=== PATIENT | female | born 1955 | race Caucasian/White ===

== ENCOUNTER → 2017-03-17 | Outpatient (CLI) | payer OTHER ==
[2017-03-17 12:12] LABS: ALT 36 U/L (9-52); AST 24 U/L (14-36); Alkaline Phosphatase 67 U/L (38-126); Anion Gap 8 mmol/L; Blood Urea Nitrogen 19 mg/dL (7-17); Calcium 9.7 mg/dL (8.4-10.2); Carbon Dioxide 27 mmol/L (22-30); Chloride 106 mmol/L (98-107); Cholesterol 193 mg/dL (<200); Glucose 105 mg/dL (74-99); HDL Cholesterol 57 mg/dL (40-60); Non-African American GFR(MDRD) >60 (>60 ml/min/1.73 sqM); Potassium 4.3 mmol/L (3.5-5.1); Sodium 141 mmol/L (137-145); Total Bilirubin 0.8 mg/dL (0.2-1.3); Total Protein 6.8 g/dL (6.3-8.2); Triglycerides 171 mg/dL (<150)
== END | disposition home or self-care (01) ==
LOC: LABWHC1 10:50
PROVIDERS: ATTEND Internal Medicine Clinical Cardiac Electrophysiology
DX: I10 Essential (primary) hypertension (principal); I48.0 Paroxysmal atrial fibrillation; E78.5 Hyperlipidemia, unspecified
CPT/HCPCS: 36415; 80053; 80061; 84443

== ENCOUNTER → 2017-10-06 | Outpatient (CLI) | payer OTHER ==
--- NOTE | 2017-10-06 11:03 | US ---
EXAMINATION TYPE: US renal artery duplex complete DATE OF EXAM: 10/06/2017 COMPARISON: NONE CLINICAL HISTORY: I10 essential hypertension. History of hypertension for 15 years but now uncontroll ed for one month per patient MEASUREMENTS: RENAL SIZE: Rt Kidney: 10.7 x 4.9 x 4.9cm Lt Kidney: 10.4 x 5.5 x 4.5 RESISTANCE INDEX Right: 0.0 Left: 0.0 RA/AO RATIO (< 3.5 ) Right: 1.2 Left: 1.7 RA VELOCITY ( < 180 cm/s) Right: 105 Left: 151 No evidence of renal artery stenosis. Kidneys within normal limits. Visualized portion of aorta is unremarkable. Kidneys are symmetric and normal in size. No gross hydro nephrosis is seen. Scanning of bilateral renal arteries show satisfactory phasicity without suspiciou s increased velocity. IMPRESSION: No convincing ultrasound evidence for clinically significant focal renal artery stenosis.
== END | disposition home or self-care (01) ==
LOC: RADUSWWP 10-05 13:46 → RADXRMAIN 09:21
PROVIDERS: ATTEND Family Medicine
DX: I10 Essential (primary) hypertension (principal)
CPT/HCPCS: 93975

== ENCOUNTER → 2019-04-04 | Outpatient (CLI) | payer BC ==
--- NOTE | 2019-04-04 09:56 | MM ---
Reason for exam: additional evaluation requested from prior study. Last mammogram was performed 1 year and 6 months ago. History: Retro-pectoral saline implants in both breasts, 2000. Physical Findings: Nurse Summary: 0.5cm nodule in the right breast at 6 o'clock (nurse mj). MG 3D Diag Mammo Imp W/Cad AMANUEL Bilateral CC, MLO, and ID view(s) were taken. Prior study comparison: October 03, 2017, bilateral MG 3d screen mammo imp/cad. March 30, 2015, bilateral MG screening mammo implant/CAD. There are scattered fibroglandular densities. No suspicious abnormality. Right palpable corresponds to a stable mammographic mass back to 2016 that is circumscribed, likely a lymph node or cyst. Ultrasound ordered by ordering physician. Bilateral retropectoral saline implants. These results were verbally communicated with the patient and result sheet given to the patient on 04/04/19. ASSESSMENT: Benign, BI-RAD 2 RECOMMENDATION: Routine screening mammogram of both breasts in 1 year.
--- NOTE | 2019-04-04 09:58 | USB ---
Reason for exam: clinical finding. History: Retro-pectoral saline implants in both breasts, 2000. US Breast RT Right complete breast ultrasound includes all four quadrants, the retroareolar region and axilla. Finding demonstrates a 9 x 3 x 4mm oval, hypoechoic lesion at 6 o'clock BB, probable lymph node, corresponds to a mammographic finding, benign. These results were verbally communicated with the patient and result sheet given to the patient on 04/04/19. ASSESSMENT: Benign, BI-RAD 2 RECOMMENDATION: Routine screening mammogram of both breasts in 1 year.
== END | disposition home or self-care (01) ==
LOC: RADMAMWWP 08:14
PROVIDERS: ATTEND Family Medicine
DX: N64.9 Disorder of breast, unspecified (principal)
CPT/HCPCS: 77062; 77066

== ENCOUNTER 2019-07-03 06:20 | Day surgery (SDC) | payer BC ==
[2019-07-01 08:47] VITALS: BMI 29.9
[2019-07-03] MEDS ORDERED: SODIUM CHLORIDE 0.9% 500 ML 500 ML IV ONE (06:55)
[2019-07-03 07:01] VITALS: TEMP 97.6
[2019-07-03] MEDS ORDERED: fentaNYL (PF) 50 MCG/ML 2 ML AMP ONE (07:07)
[2019-07-03 07:12] LABS: African American GFR (CKD) >90 (>60 ml/min/1.73 sqM); Anion Gap 6 mmol/L; Blood Urea Nitrogen 13 mg/dL (7-17); Calcium 9.2 mg/dL (8.4-10.2); Carbon Dioxide 26 mmol/L (22-30); Chloride 106 mmol/L (98-107); Glucose 93 mg/dL (74-99); Sodium 138 mmol/L (137-145)
[2019-07-03] MEDS ORDERED: diphenhydrAMINE 50 MG/ML 1 ML VIAL ONE (07:21)
[2019-07-03] MEDS ORDERED: methylPREDNISolone SOD SUCCI 125 MG/2 ML VIAL ONE (07:21)
[2019-07-03] MEDS ORDERED: BENZOCAINE SPRAY 1 CAN MUCOUS MEM ONE ×2 (07:30→07:32)
[2019-07-03] MEDS ORDERED: MIDAZOLAM (PF) 2 MG/2 ML VIAL IVP ONE (07:34)
[2019-07-03] MEDS ORDERED: fentaNYL (PF) 50 MCG/ML 2 ML AMP IVP ONE (07:45)
[2019-07-03] MEDS ORDERED: SODIUM CHLORIDE 0.9% 1,000 ML IV SCH (08:00)
--- NOTE | 2019-07-03 08:08 | ECHOT ---
TRANSESOPHAGEAL ECHOCARDIOGRAM INDICATION: Evaluation of left atrial appendage. PROCEDURE: After explaining the procedure to the patient, its risks and complications, blood pressure, heart rate, O2 saturation was monitored. The throat was sprayed with Cetacaine. She received 3 mg intravenous Versed, 50 mcg intravenous fentanyl, the probe which was introduced into the esophagus without difficulties. Images were obtained. From there, the probe was removed. There was no immediate complication. FINDINGS: Left atrial size is mildly dilated. Left atrial appendage is normal size and systolic function normal. The aortic valve is a tricuspid valve with mild thickening tricuspid valve. Mitral valve is normal. Tricuspid valve is normal. Pulmonic valve is normal, descending thoracic aorta appears to be normal. Contrast bubble study revealed no evidence of shunting across the interatrial septum. No pericardial effusion was noted. Doppler pulse wave and color Doppler were obtained and revealed moderate mitral and aortic regurgitation with mild to moderate tricuspid regurgitation. The estimated right ventricular systolic pressure was 48 mmHg consistent with mild pulmonary hypertension. There was trace pulmonic regurgitation. CONCLUSION: 1. Normal size systolic function. 2. Normal appearance left atrial appendage. 3. Moderate mitral and tricuspid and aortic regurgitation with mild to moderate tricuspid regurgitation and trace pulmonic regurgitation. 4. Mo shunting across the interatrial septum. 5. Normal appearance of the descending thoracic aorta. MMODL / IJN: [id number] /
[2019-07-03 08:14] VITALS: RESP 16
[2019-07-03] MEDS ORDERED: METOPROLOL TARTRATE 75 MG PO SCH (09:00)
[2019-07-03] MEDS ORDERED: APIXABAN 5 MG TAB PO SCH (09:00)
[2019-07-03] MEDS ORDERED: NON FORMULARY DRUG (Omeprazole 20 MG) PO SCH (09:00)
[2019-07-03] MEDS ORDERED: ATORVASTATIN 10 MG TAB PO SCH (09:00)
[2019-07-03] MEDS ORDERED: FLECAINIDE ACETATE 100 MG PO SCH (09:00)
[2019-07-03 09:27] LABS: T4, Free (Free Thyroxine) 0.88 ng/dL (0.78-2.19)
[2019-07-03 12:54] VITALS: BP 151/83; PULSE 70
== END 2019-07-03 09:20 | disposition home or self-care (01) ==
LOC: CATHCVL 06:20
PROVIDERS: ATTEND Internal Medicine Interventional Cardiology
DX: I08.3 Combined rheumatic disorders of mitral, aortic and tricuspid valves (principal); I48.0 Paroxysmal atrial fibrillation; I10 Essential (primary) hypertension; E78.5 Hyperlipidemia, unspecified; Z79.899 Other long term (current) drug therapy; Z79.01 Long term (current) use of anticoagulants; Z91.040 Latex allergy status; Z98.890 Other specified postprocedural states; Z82.49 Family history of ischemic heart disease and other diseases of the circulatory system
CPT/HCPCS: 93312; 93320; 93325; 84439; 84481; 80048; 84443; J3010; J2250

== ENCOUNTER 2019-07-04 07:06 | Day surgery (SDC) | payer BC ==
[2019-07-04] MEDS ORDERED: SODIUM CHLORIDE 0.9% 1,000 ML IV ONE (07:42)
[2019-07-04 07:48] LABS: Basophils # (A) 0.1 k/uL (0-0.2); Basophils % (A) 1 %; Eosinophils # (A) 0.1 k/uL (0-0.7); Eosinophils % (A) 1 %; HCT 35.5 % (34.0-46.0); HGB 11.9 gm/dL (11.4-16.0); Lymphocytes # (A) 3.2 k/uL (1.0-4.8); Lymphocytes % (A) 48 %; MCH 31.4 pg (25.0-35.0); MCHC 33.6 g/dL (31.0-37.0); MCV 93.4 fL (80.0-100.0); Mean Platelet Volume 8.8; Monocytes # (A) 0.3 k/uL (0-1.0); Monocytes % (A) 4 %; Neutrophils % (A) 44 %; Platelet Count 218 k/uL (150-450); RDW 15.5 % (11.5-15.5); WBC 6.8 k/uL (3.8-10.6)
[2019-07-04] MEDS ORDERED: fentaNYL (PF) 50 MCG/ML 2 ML AMP ONE (08:07)
[2019-07-04] MEDS ORDERED: PROTAMINE SULFATE 10 MG/ML 5 ML VIAL IV ONE (08:07)
[2019-07-04] MEDS ORDERED: HEPARIN SODIUM,PORCINE 10,000 UNIT/ML 1 ML VIAL ONE (08:07)
[2019-07-04] MEDS ORDERED: ISOPROTERENOL 250 MCG/1.25 ML SYR IV ONE (08:07)
[2019-07-04] MEDS ORDERED: MIDAZOLAM 2 MG/2 ML VIAL ONE (08:07)
[2019-07-04] MEDS ORDERED: PROPOFOL 10 MG/ML 20 ML VIAL IV ONE (08:07)
[2019-07-04] MEDS ORDERED: PHENYLEPHRINE-0.9% NACL SYG 1 MG/10 ML SYRINGE ONE (08:07)
[2019-07-04] MEDS ORDERED: SUCCINYLCHOLINE CHLORIDE VIAL 200 MG/10 ML VIAL IV ONE (08:07)
[2019-07-04] MEDS ORDERED: LIDOCAINE 1% INJ 10MG/ML (20 ML MDV) ONE (08:32)
[2019-07-04] MEDS ORDERED: LIDOCAINE 1% INJ 10MG/ML (20 ML MDV) SQ ONE (08:55)
[2019-07-04] MEDS ORDERED: HEPARIN SOD,PORK IN 0.45% NACL 25,000 UNIT in 0.45% NACL 1 250ML.BAG IV ONE ×2 (09:15)
[2019-07-04] MEDS ORDERED: HEPARIN SODIUM (1,000 UNIT/ML) 1,000 UNIT in SODIUM CHLORIDE 0.9% 1,000 ML IRRIGATION ONE (09:16)
[2019-07-04] MEDS ORDERED: ACETAMINOPHEN IV (For NPO) 1,000 MG in EMPTY BAG 1 BAG IVPB ONE (13:28)
[2019-07-04] MEDS ORDERED: ACETAMINOPHEN TAB 325 MG TAB PO PRN (13:28)
[2019-07-04] MEDS ORDERED: IOPAMIDOL-370 100ML BTL INJ ONE ×2 (13:29)
--- NOTE | 2019-07-04 13:46 | P.PCN ---
Preoperative Diagnosis: Diagnosis Atrial fibrillation, symptomatic, refractory to therapy, paroxysmal Result No left atrial appendage mass seen on intracardiac echo Successful pulmonary vein isolation of all veins using cryo-ablation Complete entrance block in all 4 veins confirmed No evidence for phrenic nerve injury Esophageal deflection YES Electrical cardioversion with a synchronized shock across the chest YES Procedure details Patient was brought to the EP lab in a fasting state. Written informed consent was obtained prior to the procedure. Procedure performed under general anesthesia After initial muscle relaxant use, muscle relaxants were not given thereafter in order to assess phrenic nerve during procedure. Patient prepped and draped as per protocol Full cryo-set up with standard preparation of the cryoablation tools done. Femoral Venous access obtained on the right and left groins Venous and arterial Sheaths placed. Diagnostic catheters for the high right atrium, phrenic nerve stimulation and pacing, His bundle, RV and coronary sinus placed Intracardiac echo catheter placed. Long sheath placed in the right atrium Left and right transseptal catheterization performed under intracardiac echo guidance. Intravenous heparin with aCT above 300 Later, catheter positioning and balloon positioning in the left atrium, under i ntracardiac echo guidance Diagnostic EP study with Drug infusion Coronary sinus pacing and recording Baseline measurements Sinus cycle length 884 ms, AZ interval 210 ms QRS 108 ms and QT 431 ms AH 101 ms and HV interval 50 ms Atrial pacing performed from the high right atrium and the coronary sinus Transseptal catheterization performed RA pressure 21/12/18 LA pressure 43/10/25 Transseptal catheterization performed with standard sheath. The cryoablation sheath was then placed with an over the wire exchange without any acute complications. All 4 pulmonary veins were isolated in the following sequence: Left superior followed by left inferior followed by right superior followed by right inferior The cryo-ablation balloon was placed at the os of each vein 1.5 mL of IV dye was injected to confirm an occluded vein Goal during cryoablation was to achieve complete occlusion of the pulmonary vein, achieve -30 degrees C at 30 seconds and achieve -40 degrees C at 60 seconds and a time to effect of less than 60-90 seconds, . If not the balloon was repositioned to obtain this result After completion of Cryoblation with durations from 180-240 seconds, entrance block was confirmed with the Attain circular catheter in a roving fashion around the antrum of the pulmonary veins Phrenic nerve pacing was performed from the SVC, right innominate vein area and diaphragm voltage was monitored. Diaphragmatic contractions were also monitored manually for strength of contraction. Parameter goals for each cryo freeze Complete occlusion of the appropriate vein -30 degrees C by 30 seconds -40 degrees C by 60 seconds Minimum between minus 40-55 degrees C Thaw time greater than 10 seconds Balloon visualized by intracardiac echo The esophagus was intubated. Esophageal Temperature monitoring with a CIRCA catheter formed. Esophageal deflection for hypothermia of the esophagus below 30 degrees C Left superior pulmonary vein Complete isolation, entrance block Left inferior pulmonary vein Complete isolation, entrance block Right superior pulmonary vein, during phrenic nerve pacing Complete isolation, entrance block Right inferior pulmonary vein, during phrenic nerve pacing Complete isolation, entrance block At the end of the procedure the Achieve catheter was once again used to check for entrance block Phrenic nerve stimulation was performed to confirm diaphragmatic stimulation the end of the procedure Cine fluoroscopy was performed at the very end of the procedure to confirm movement of both diaphragms with inspiration and expiration After successful cryoablation N EP study is performed Isuprel was infused Atrial fibrillation, somewhat organized was induced Following that 3-D electro anatomic mapping was performed in the left atrium intracardiac echo 3-D mapping was performed Voltage map of the left atrium and the pulmonary veins was performed Linear ablation in the left atrial roof was performed A complete line of block was made from the left superior to the right superior vein and somewhat anteriorly on the roof. This line was interrogated with voltage mapping at the end of the procedure Anterior septal ablation linear ablation was performed. A linear ablation from the roof line down to the inferior pulmonary vein and also ablation in a semicircular fashion more anterior to this line skirting close to the transseptal. We followed fractionated electrograms during sinus rhythm. Following that pacing within this segment did not result in any capture of the rest of the atrium, exit block Linear ablation in the groove between the appendage and the left-sided veins Linear ablation in the nikole posteriorly between the right superior and right inferior veins At the end of the procedure the patient was extubated Heparin was reversed Venous sheaths were removed and hemostasis assured Procedures performed (PVI - CRYO Ablation) Diagnostic EP study with attempted arrhythmia induction CS pacing and recording Left and right transseptal catheterization 3D mapping) Intracardiac echocardiography Pulmonary vein isolation with transseptal and comprehensive EPS, [id number] Left atrial roof line, +[id number] Linear ablation, left atrium, +[id number] Electrical cardioversion with a synchronized shock across the chest [id number] Drug Infusion +[id number]
[2019-07-04] MEDS: SODIUM CHLORIDE 0.9% 1,000 ML IV SCH (13:56)
[2019-07-04 15:18] VITALS: BMI 31.5
[2019-07-04] MEDS: HYDROcodone/APAP 5-325MG 1 EACH TAB PO PRN (16:44)
[2019-07-04] MEDS: APIXABAN 5 MG TAB PO SCH (19:40)
[2019-07-04] MEDS ORDERED: FLECAINIDE 50 MG TAB PO SCH (21:00)
[2019-07-04] MEDS ORDERED: ZOLPIDEM 5 MG TAB PO PRN (23:54)
[2019-07-05] MEDS: HYDROcodone/APAP 5-325MG 1 EACH TAB PO PRN (03:16)
[2019-07-05] MEDS: SODIUM CHLORIDE 0.9% 1,000 ML IV SCH (06:40)
[2019-07-05] MEDS ORDERED: PANTOPRAZOLE 40 MG TABLET PO SCH (07:30)
[2019-07-05] MEDS ORDERED: ATORVASTATIN 10 MG TAB PO SCH (09:00)
[2019-07-05] MEDS ORDERED: LISINOPRIL 10 MG TAB PO SCH ×2 (09:00)
[2019-07-05] MEDS ORDERED: FLECAINIDE 50 MG TAB PO SCH ×2 (09:00)
[2019-07-05] MEDS ORDERED: METOPROLOL TARTRATE 75 MG PO SCH (09:00)
[2019-07-05] MEDS ORDERED: METOPROLOL SUCCINATE (ER) 50 MG TAB.ER.24H PO SCH (09:00)
[2019-07-05] MEDS: APIXABAN 5 MG TAB PO SCH (09:06)
--- NOTE | 2019-07-05 09:20 | P.DS ---
Providers Attending physician: Jean Marshall Primary care physician: [facility] Course: Patient is resting comfortably in bed. She did get up to go to the bathroom She has no chest discomfort no dizziness lightheadedness palpitations. Groins have healed well no pain swelling Groins are examined no hematoma no swelling minimal tenderness Breath sounds are clear no adventitious sounds no rhonchi no crackles Normal heart sounds normal S1 normal S2 regular Abdomen soft nontender Extremities warm no edema Impression Paroxysmal atrial fibrillation, drug refractory to both flecainide and disopyramide Hypertension, usually takes lisinopril Regular alcohol use Being evaluated for sleep apnea Increased BMI Dyslipidemia, on statins Status post cryoablation of pulmonary veins. A pulmonary veins had reconnected. She had had pulmonary vein isolation performed in 2008, previously Inducible atrial fibrillation after successful isolation of all 4 pulmonary veins on Isuprel Thereafter Status post linear ablation along the anterior LA septum along areas of fractionation Linear ablation along the roof Linear ablation along left atrial groove between the left-sided pulmonary veins and the left atrial appendage Linear RF lines were interrogated with voltage mapping postprocedure Plan Continue Lipitor 10 mg by mouth daily Continue ELIQUIS 5 mg twice daily Reduce flecainide to 50 mg twice daily Continue Prilosec Change metoprolol succinate to 50 mg by mouth daily Resume lisinopril 10 mg by mouth daily Follow-up with a week, Follow-up with Dr. Marshall/Zonia Alas/Svetlana Rodriguez Discharge home by 5 PM today after suture removal the groins ambulating in the hallways Long-term plan Reduce the dose of flecainide Restart and maximize carmelo inhibitors Continue statins Sleep apnea assessment Complete abstinence from alcohol Gradual weight reduction Plan - Discharge Summary Discharge Rx Participant: No New Discharge Prescriptions: New Metoprolol Succinate [Toprol XL] 50 mg PO DAILY #90 tab Flecainide [Tambocor] 50 mg PO Q12HR #180 tablet Lisinopril [Zestril] 10 mg PO DAILY #90 tab Discontinued Flecainide Acetate [Tambocor] 100 mg PO Q12HR Metoprolol Tartrate [Lopressor] 75 mg PO DAILY No Action Atorvastatin [Lipitor] 10 mg PO DAILY Apixaban [Eliquis] 5 mg PO BID Omeprazole [PriLOSEC] 20 mg PO DAILY Discharge Medication List Atorvastatin [Lipitor] 10 mg PO DAILY 09/25/17 [History] Apixaban [Eliquis] 5 mg PO BID 07/01/19 [History] Omeprazole [PriLOSEC] 20 mg PO DAILY 07/01/19 [History] Metoprolol Succinate [Toprol XL] 50 mg PO DAILY #90 tab 07/04/19 [Rx] Flecainide [Tambocor] 50 mg PO Q12HR #180 tablet 07/05/19 [Rx] Lisinopril [Zestril] 10 mg PO DAILY #90 tab 07/05/19 [Rx] Follow up Appointment(s)/Referral(s): Jean Marshall MD [STAFF PHYSICIAN] - 1 Week (follow up with Dr. Marshall/Zonia Alas/Svetlana Rodriguez in one to 2 weeks) Activity/Diet/Wound Care/Special Instructions: Post EP study - Ablation instructions 1. Keep access sites dry for 2 days. 2. No heavy lifting or straining for 2 days. 3. Avoid bending the hips repeatedly for 2 days. 4. You may go up and down stairs slowly Call if the following is noted 1. Bleeding, increasing swelling or pain at the access sites. 2. Increasing chest discomfort, especially upon taking a deep breath. 3. Increasing shortness of breath, at rest or with exertion. 4. Undue cough / phlegm 5. Difficulty or pain while swallowing. 6. Pain or change in color in the extremities. 7. Fever, chills, rigors. 8. Increasing headache or neurologic symptoms. 9. Dizziness, fainting, palpitations Tinea all cardiac medications including flecainide 100 mg twice daily and Eliquis
[2019-07-05 12:28] VITALS: BP 157/84; PULSE 78; RESP 18; TEMP 98
== END 2019-07-05 15:00 | disposition home or self-care (01) ==
LOC: CATHEP 07:06 → 1SOBS 13:52 → CATHEP 07-05 15:00
PROVIDERS: ATTEND Internal Medicine Clinical Cardiac Electrophysiology
DX: I48.0 Paroxysmal atrial fibrillation (principal); I10 Essential (primary) hypertension; Z72.89 Other problems related to lifestyle; E78.5 Hyperlipidemia, unspecified; R94.39 Abnormal result of other cardiovascular function study; I47.1 Supraventricular tachycardia; K21.9 Gastro-esophageal reflux disease without esophagitis; Z79.01 Long term (current) use of anticoagulants; Z79.899 Other long term (current) drug therapy; Z91.040 Latex allergy status; Z90.710 Acquired absence of both cervix and uterus; Z82.49 Family history of ischemic heart disease and other diseases of the circulatory system
CPT/HCPCS: 93656; 93623; 93662; 93613; 93657; 85347; 85025; C1769 ×5; C1894; C1730 ×2; C1759; C1893; C1733; C1732; J2250; J0330; J2720; J1644 ×3; J2001; J3010; J2370; J2704; Q9967

== ENCOUNTER → 2021-09-01 | Outpatient (CLI) | payer MEDICARE, OTHER ==
--- NOTE | 2021-09-02 10:07 | ECHOF ---
Referral Reason:I48.0 Paroxysmal atrial fibrillation MEASUREMENTS -------- HEIGHT: 162.6 cm WEIGHT: 79.4 kg BP: RVIDd: 3.2 cm (< 3.3) IVSd: 0.9 cm (0.6 - 1.1) LVIDd: 4.5 cm (3.9 - 5.3) LVPWd: 1.2 cm (0.6 - 1.1) IVSs: 1.3 cm LVIDs: 3.1 cm LVPWs: 1.2 cm LA Diam: 3.5 cm (2.7 - 3.8) LAESV Index (A-L): 29.80 ml/m Ao Diam: 2.8 cm (2.0 - 3.7) AV Cusp: 1.8 cm (1.5 - 2.6) LA Diam: 3.4 cm (2.7 - 3.8) MV EXCURSION: 13.666 mm (> 18.000) MV EF SLOPE: 49 mm/s (70 - 150) EPSS: 0.3 cm MV E Salvador: 0.89 m/s MV DecT: 170 ms MV A Salvador: 0.88 m/s MV E/A Ratio: 1.01 AR PHT: 588 ms RAP: 5.00 mmHg RVSP: 32.15 mmHg FINDINGS -------- Sinus rhythm. This was a technically good study. LV size, wall thickness and systolic function are normal, with an EF greater than 55%. The left aniceto tricular size is normal. The right ventricle is normal in size. LA is midly dilated 29-33ml/m2. The right atrial size is normal. There is mild aortic valve sclerosis. There is mild aortic regurgitation. Mild mitral annular calcification present. Mild mitral regurgitation is present. Mild tricuspid regurgitation present. Right ventricular systolic pressure is normal at < 35 mmHg. There is no pulmonic regurgitation present. There is no pericardial effusion. CONCLUSIONS -------- 1. LV size, wall thickness and systolic function are normal, with an EF greater than 55%. 2. The left ventricular size is normal. 3. The right ventricle is normal in size. 4. LA is midly dilated 29-33ml/m2. 5. The right atrial size is normal. 6. There is mild aortic valve sclerosis. 7. There is mild aortic regurgitation. 8. Mild mitral annular calcification present. 9. Mild mitral regurgitation is present. 10. Mild tricuspid regurgitation present. 11. There is no pericardial effusion. LABEL DRIER: Ashia Clement RDCS
== END | disposition home or self-care (01) ==
LOC: RADECHMAIN 16:21
PROVIDERS: ATTEND Family Medicine
DX: I08.3 Combined rheumatic disorders of mitral, aortic and tricuspid valves (principal)
CPT/HCPCS: 93306

== ENCOUNTER 2021-09-30 10:11 | Day surgery (SDC) | payer MEDICARE, OTHER ==
[2021-09-29 11:58] VITALS: BMI 29.1
[~2021-09-30 10:11] MED LIST: LACTATED RINGERS 1,000 ML IV SCH
[2021-09-30 10:30] VITALS: TEMP 97.5
[2021-09-30] MEDS ORDERED: LACTATED RINGERS 1,000 ML IV ONE (10:30)
[2021-09-30] MEDS ORDERED: PROPOFOL 10 MG/ML 20 ML VIAL IV ONE (11:19)
--- NOTE | 2021-09-30 12:06 | P.PCN ---
Date of Procedure: 09/30/21 Procedure(s) Performed: BRIEF HISTORY: Patient is a 66-year-old pleasant white female scheduled for an elective colonoscopy as a part of screening for colorectal neoplasia. PROCEDURE PERFORMED: Colonoscopy with biopsy. PREOPERATIVE DIAGNOSIS: Screening for colon cancer. IV sedation per Anesthesia. PROCEDURE: After informed consent was obtained, the patient, was brought into the endoscopy unit. IV sedation was administered by Anesthesia under continuous monitoring. Digital rectal examination was normal. Initially the Olympus CF-160 flexible video colonoscope was then inserted in the rectum, gradually advanced into the cecum without any difficulty. Careful examination was performed as the scope was gradually being withdrawn. Ileocecal valve and the appendiceal orifice were visualized and appeared normal. Prep was excellent. Mucosa of the cecum had 3 mm sessile polyp removed by cold biopsy. In the ascending colon there was a 2 mm and 3 mm polyp that was removed by cold biopsy. Rest of the, ascending colon, appeared normal. In the transverse colon there was another 2 mm polyp that was removed by cold biopsy. Rest of the transverse colon, descending colon, sigmoid colon, and rectum appeared normal. Scattered sigmoid diverticulosis seen. Retroflexion was performed in the rectum and no lesions were seen. The patient tolerated the procedure well. IMPRESSION: 3 mm cecal polyp status post cold biopsy 3 mm and 5 mm ascending colon polyp status post cold biopsy 2 mm transverse colon polyp status post cold biopsy Scattered sigmoid diverticulosis RECOMMENDATIONS: Findings of this examination were discussed with the patient as well as a family. She was advised to follow with the biopsy results and have a repeat surveillance colonoscopy in 5 years from now.
[2021-09-30 12:42] VITALS: BP 128/74; PULSE 88; RESP 16
== END 2021-09-30 13:07 | disposition home or self-care (01) ==
LOC: ORWHC2ENDO 10:11
PROVIDERS: ATTEND Internal Medicine Gastroenterology
DX: Z12.11 Encounter for screening for malignant neoplasm of colon (principal); D12.2 Benign neoplasm of ascending colon; D12.0 Benign neoplasm of cecum; K57.30 Diverticulosis of large intestine without perforation or abscess without bleeding; I10 Essential (primary) hypertension; E78.5 Hyperlipidemia, unspecified; I48.91 Unspecified atrial fibrillation; K21.9 Gastro-esophageal reflux disease without esophagitis; Z98.890 Other specified postprocedural states; Z90.710 Acquired absence of both cervix and uterus; Z79.01 Long term (current) use of anticoagulants; Z79.899 Other long term (current) drug therapy; Z91.040 Latex allergy status
CPT/HCPCS: 88305; 45380; J2704

== ENCOUNTER → 2023-03-14 | Outpatient (CLI) | payer MEDICARE ==
[2023-03-14 09:58] LABS: Basophils % (A) 0 %; Eosinophils # (A) 0.1 k/uL (0-0.7); Eosinophils % (A) 1 %; HCT 36.4 % (34.0-46.0); HGB 11.5 gm/dL (11.4-16.0); Lymphocytes # (A) 2.6 k/uL (1.0-4.8); Lymphocytes % (A) 32 %; MCH 31.4 pg (25.0-35.0); MCHC 31.7 g/dL (31.0-37.0); MCV 99.1 fL (80.0-100.0); Monocytes # (A) 0.5 k/uL (0-1.0); Monocytes % (A) 6 %; Neutrophils # (A) 4.8 k/uL (1.3-7.7); Neutrophils % (A) 59 %; Platelet Count 227 k/uL (150-450); RBC 3.67 m/uL (3.80-5.40); RDW 12.9 % (11.5-15.5); WBC 8.1 k/uL (3.8-10.6)
[2023-03-14 10:08] LABS: ALT 41 U/L (4-34); AST 76 U/L (14-36); African American GFR (CKD) >90 (>60 ml/min/1.73 sqM); Albumin 3.8 g/dL (3.5-5.0); Albumin/Globulin Ratio 1.3; Alkaline Phosphatase 155 U/L (38-126); Anion Gap 7 mmol/L; Blood Urea Nitrogen 9 mg/dL (7-17); Calcium 8.8 mg/dL (8.4-10.2); Carbon Dioxide 29 mmol/L (22-30); Chloride 96 mmol/L (98-107); Glucose 100 mg/dL (74-99); Non-African American GFR(CKD) >90 (>60 ml/min/1.73 sqM); Potassium 4.3 mmol/L (3.5-5.1); Sodium 132 mmol/L (137-145); Total Bilirubin 1.2 mg/dL (0.2-1.3); Total Protein 6.8 g/dL (6.3-8.2)
--- NOTE | 2023-03-14 11:23 | CT ---
EXAMINATION TYPE: CT abdomen pelvis w con DATE OF EXAM: 03/14/2023 COMPARISON: None HISTORY: Lower abdominal pain CT DLP: 1034.8 mGycm CONTRAST: CT scan of the abdomen and pelvis is performed with Oral Contrast and with IV Contrast, patient injec nimesh with 100 mL of Isovue 300. FINDINGS: LUNG BASES-: No visible nodule. No infiltrate. Small paraesophageal hiatal hernia with prior surgica l intervention felt to reflect gastric sleeve. Correlate clinically. LIVER/GB: No calcified gallstones. No space occupying hepatic lesion. Biliary tree is of normal ca liber. There is mild hepatic steatosis. PANCREAS: No inflammation. No distinct mass. SPLEEN: No splenic enlargement. No lesion seen. ADRENALS: No nodule. No thickening. KIDNEYS/BLADDER: No hydronephrosis. No nephrolithiasis. No distinct renal mass. Urinary bladder g rossly unremarkable. BOWEL: Normal appendix. Normal bowel caliber. Mild inflammatory change compatible with acute diverti culitis involving the distal descending colon. No evidence of perforation or abscess. Scattered diver ticula noted throughout the sigmoid colon as well as the descending colon. GENITAL ORGANS: No gross abnormality. LYMPH NODES: No greater than 1cm abdominal or pelvic lymph nodes are appreciated. AORTA: No significant abnormality. OSSEOUS STRUCTURES: No significant abnormality is seen. OTHER: No significant additional abnormality is seen. IMPRESSION: 1. Mild inflammatory change compatible with acute diverticulitis involving the distal descending colo n. No evidence of perforation or abscess.
[2023-03-14 16:06] LABS: Chol/HDL Ratio 2.41 Ratio; LDL Cholesterol,Calculated 71.7 mg/dL
== END | disposition home or self-care (01) ==
LOC: RADCTMAIN 09:16
PROVIDERS: ATTEND Family Medicine
DX: K52.89 Other specified noninfective gastroenteritis and colitis (principal); R10.30 Lower abdominal pain, unspecified
CPT/HCPCS: 80061; 80053; 84443; 85025; 82306; 83036; 74177; 36415; Q9967

== ENCOUNTER → 2023-03-14 | Outpatient (CLI) | payer MEDICARE, OTHER ==
--- NOTE | 2023-03-15 07:45 | MM ---
Reason for Exam: Screening (asymptomatic). Last mammogram was performed 4 year(s) and 0 month(s) ago. Patient History: Menarche at age 13. First Full-Term at age 20. Hysterectomy at age 46. 2000, Bilateral Implants. Risk Values: [place] 5 year model risk: 1.2%. NCI Lifetime model risk: 4.4%. Prior Study Comparison: 03/30/2015 Bilateral Screening Mammogram, [facility]. 10/03/2017 Bilateral Screening Mammogram, [facility]. 04/04/2019 Bilateral Diagnostic Mammogram, [facility]. Tissue Density: There are scattered fibroglandular densities. Findings: Analyzed By CAD. There is no suspicious group of microcalcifications or new suspicious mass in either breast. Chronic nodularity within both breasts. There is no suspicious group of microcalcifications or new suspicious mass in either breast. Chronic nodularity within both breasts. Bilateral retropectoral saline breast implants redemonstrated. Overall Assessment: Benign, BI-RAD 2 Management: Screening Mammogram of both breasts in 1 year. A clinical breast exam by your physician is recommended on an annual basis and results should be correlated with mammographic findings. Electronically signed and approved by: Richar Rodrigues D.O.
== END | disposition home or self-care (01) ==
LOC: RADMAMWWP 10:59
PROVIDERS: ATTEND Family Medicine
DX: Z12.31 Encounter for screening mammogram for malignant neoplasm of breast (principal)
CPT/HCPCS: 77063; 77067

== ENCOUNTER → 2023-06-05 | Outpatient (CLI) | payer MEDICARE ==
[2023-06-05 09:47] LABS: African American GFR (CKD) >90 (>60 ml/min/1.73 sqM); Blood Urea Nitrogen 10 mg/dL (7-17); Non-African American GFR(CKD) >90 (>60 ml/min/1.73 sqM)
--- NOTE | 2023-06-05 11:19 | CT ---
EXAMINATION TYPE: CT abdomen pelvis w con DATE OF EXAM: 06/05/2023 COMPARISON: 03/14/2023 HISTORY: Increased lower abdominal pain, history of diverticulosis CT DLP: 1074.6 mGycm CONTRAST: CT scan of the abdomen and pelvis is performed with Oral Contrast and with IV Contrast, patient injec nimesh with 100 mL of Isovue 300. FINDINGS: LUNG BASES-: No visible nodule. No infiltrate. LIVER/GB: No calcified gallstones. No space occupying hepatic lesion. Biliary tree is of normal ca liber. Mild hepatic steatosis noted. PANCREAS: No inflammation. No distinct mass. SPLEEN: No splenic enlargement. No lesion seen. ADRENALS: No nodule. No thickening. KIDNEYS/BLADDER: No hydronephrosis. No nephrolithiasis. No distinct renal mass. Urinary bladder g rossly unremarkable. BOWEL: Normal appendix. Gastric sleeve formation with small hiatal hernia. Moderate scattered colonic diverticulosis. Previously noted diverticulitis has resolved. No acute inflammatory process seen at this time. GENITAL ORGANS: No gross abnormality. LYMPH NODES: No greater than 1cm abdominal or pelvic lymph nodes are appreciated. AORTA: No significant abnormality. OSSEOUS STRUCTURES: No significant abnormality is seen. OTHER: No significant additional abnormality is seen. IMPRESSION: 1. Moderate scattered colonic diverticulosis. Previously noted diverticulitis has resolved. No acute inflammatory process seen at this time.
== END | disposition home or self-care (01) ==
LOC: RADCTMAIN 09:06
PROVIDERS: ATTEND Internal Medicine Gastroenterology
DX: K57.30 Diverticulosis of large intestine without perforation or abscess without bleeding (principal); R74.8 Abnormal levels of other serum enzymes; Z87.19 Personal history of other diseases of the digestive system
CPT/HCPCS: 82565; 84520; 74177; 36415; Q9967

== ENCOUNTER → 2023-06-08 | Outpatient (CLI) | payer MEDICARE ==
--- NOTE | 2023-06-08 10:21 | US ---
EXAMINATION TYPE: US abdomen limited DATE OF EXAM: 06/08/2023 COMPARISON: CT 06/05/23 CLINICAL INDICATION: Female, 68 years old with history of R74.8 ABNORMAL LEVELS OF OTHER SERUM ENZYME S; TECHNIQUE: Multiple sonographic images of the right upper quadrant are obtained. FINDINGS: EXAM MEASUREMENTS: Liver Length: 14.3 cm Gallbladder Wall: 0.29 cm CBD: 0.31 cm Right Kidney: 9.8 x 5.2 x 4.5 cm JAVASCRIPT DEVELOPER NOTES: Pancreas: Tail obscured by overlying bowel gas Liver: Increased echogenicity Gallbladder: Appears wnl Evidence for sonographic Garcia's sign: no CBD: wnl Right Kidney: Appears wnl The visualized portions of the pancreas are unremarkable. The tail is obscured by overlying bowel gas . Diffuse increased echogenicity to the liver without focal lesion identified. Gallbladder is unremar kable without evidence of cholelithiasis, wall thickening, pericholecystic fluid. Per manager service desk, ne gative sonographic Garcia sign. Common bile duct is within normal limits. Right kidney is unremarkabl e without evidence of solid mass, hydronephrosis, nephrolithiasis. IMPRESSION: 1. No acute processes. 2. Hepatic steatosis.
[2023-06-08 13:52] LABS: Hepatitis B Surface Antigen Nonreactive; Hepatitis C IgG Antibody Nonreactive
[2023-06-08 14:11] LABS: Ceruloplasmin 26.9 mg/dL (20.0-60.0)
[2023-06-08 16:30] LABS: % Iron Saturation 26.14 (12.00-45.00); ALT 40 U/L (8-44); AST 40 U/L (13-35); Albumin 4.2 d/dL (3.8-4.9); Albumin/Globulin Ratio 1.91 Ratio (1.60-3.17); Alkaline Phosphatase 103 U/L (41-126); Blood Urea Nitrogen 7.5 mg/dL (9.0-27.0); Calcium 9.5 mg/dL (8.7-10.3); Chloride 103 mmol/L (96-109); Globulin 2.2 d/dL (1.6-3.3); Glucose 99 mg/dL (70-110); Iron 86 UG/DL (50-170); Potassium 4.6 mmol/L (3.5-5.5); Sodium 139 mmol/L (135-145); Total Bilirubin 0.3 mg/dL (0.3-1.2); Total Iron Binding Capacity 329 UG/DL (228-460); Total Protein 6.4 d/dL (6.2-8.2)
[2023-06-08 17:26] LABS: Albumin 4.1 d/dL (3.8-4.9); Protein, Total 6.5 d/dL (6.2-8.2)
== END | disposition home or self-care (01) ==
LOC: RADUSWWP 09:30
PROVIDERS: ATTEND Internal Medicine Gastroenterology
DX: K76.0 Fatty (change of) liver, not elsewhere classified (principal); R74.8 Abnormal levels of other serum enzymes
CPT/HCPCS: 76705; 80053; 82103; 82390; 82728; 83516; 83540; 83550; 84165; 86038; 86803; 87340

== ENCOUNTER → 2024-01-17 | Outpatient (CLI) | payer MEDICARE ==
--- NOTE | 2024-01-18 12:21 | US ---
EXAMINATION TYPE: US arterial LE single level DATE OF EXAM: 01/17/2024 3:21 PM CLINICAL INDICATION: Female, 68 years old with history of G64 DISORDER PERIPHERAL VASC SYSTEM; Patien t states foot neuropathy. History of: Smoker: No Hypertension: Takes medication Diabetic: No Hyperlipidemia: Takes medication TIA/CVA: No Previous Vascular Surgery: No CAD: No AL: No Vascular Ulcers: No Claudication: No Gangrene: No Doppler Waveforms: Right: Multiphasic Left: Multiphasic Right Brachial Pressure: 113 Left Brachial Pressure: 112 Ankle-Brachial Indices: Right: 1.3 Left: 1.3 (Vessel hardening > 1.4; Normal 0.9 - 1.4, Moderate 0.7 - 0.9, Severe 0.5-0.7) Normal IMPRESSION: Normal bilateral SUZIE.
== END | disposition home or self-care (01) ==
LOC: RADUSWWP 14:59
PROVIDERS: ATTEND Family Medicine
DX: G64 Other disorders of peripheral nervous system (principal)
CPT/HCPCS: 93922

== ENCOUNTER → 2024-12-31 | Outpatient (CLI) | payer MEDICARE ==
--- NOTE | 2024-12-31 13:12 | US ---
EXAMINATION TYPE: US venous doppler duplex LE BI; LOWER EXTREMITY VENOUS INSUFFICIENCY DATE OF EXAM: 12/31/2024 COMPARISON: NONE CLINICAL INDICATION: Female, 69 years old with history of G25.81 RESTLESS LEGS; TECHNIQUE: Grayscale color Doppler and spectral Doppler imaging of the lower extremity veins. FINDINGS: SIDE PERFORMED: Bilateral 1) Color flow is present and patency is documented in the following vessels. No DVT or SVT is noted . Common Femoral Vein Deep Femoral Vein Femoral Vein Popliteal Vein Proximal Calf Veins Greater Saph Vein 2) There is venous reflux noted at the following venous levels: None 3) Incompetent perforators are noted at these levels: None IMPRESSION: No evidence for venous insufficiency/reflux. No ultrasound evidence for acute DVT bilaterally. [facility], , 12/31/2024 1:10 PM
--- NOTE | 2024-12-31 13:13 | US ---
EXAMINATION TYPE: US carotid duplex BILAT DATE OF EXAM: 12/31/2024 COMPARISON: NONE CLINICAL INDICATION: Female, 69 years old with history of R20.2 PARESTHESIA OF SKIN; TECHNIQUE: Grayscale, color Doppler and spectral Doppler evaluation of the bilateral carotid systems and vertebral arteries. Indirect Doppler criteria was utilized. FINDINGS: EXAM MEASUREMENTS: RIGHT: Peak Systolic Velocity (PSV) cm/sec ----- Right CCA: 87.5 ----- Right ICA: 87.1 ----- Right ECA: 100.5 ICA/CCA ratio: 1.0 RIGHT: End Diastole cm/sec ----- Right CCA: 26.2 ----- Right ICA: 34.8 ----- Right ECA: 12.6 LEFT: Peak Systolic Velocity (PSV) cm/sec ----- Left CCA: 80.9 ----- Left ICA: 80.9 ----- Left ECA: 79.2 ICA/CCA ratio: 1.0 LEFT: End Diastole cm/sec ----- Left CCA: 19.3 ----- Left ICA: 32.5 ----- Left ECA: 10.8 VERTEBRALS (direction of flow): Right Vertebral: Antegrade Left Vertebral: Antegrade Rhythm: Normal [id number] peripheral calcified plaque left greater than right carotid bulb level is seen. IMPRESSION: Right: Less than 50% stenosis of the carotid bifurcation. Left: Less than 50% stenosis of the carotid bifurcation. Criteria for Assigning % of Stenosis / Diameter reduction (Estimation based on the indirect measurements of the internal carotid artery velocities (ICA PSV). 1. Normal (no stenosis)=ICA PSV < 125 cm/s: ratio < 2.0: ICA EDV<40 cm/s. 2. Less than 50% stenosis=ICA PSV < 125 cm/s: ratio < 2.0: ICA EDV<40 cm/s. 3. 50 to 69% stenosis=ICA PSV of 125 to 230 cm/s: ration 2.0 ? 4.0: ICA EDV 40-100 cm/s. 4. Greater than 70% stenosis to near occlusion= ICA PSV > 230 cm/s: ratio > 4.0: ICA EDV > 100 cm/s. 5. Near occlusion= ICA PSV velocities may be low or undetectable: variable ratio and ICA EDV. 6. Total occlusion=unable to detect flow. [facility], , 12/31/2024 1:11 PM
--- NOTE | 2024-12-31 14:22 | MR ---
EXAMINATION TYPE: MR cervical spine wo con DATE OF EXAM: 12/31/2024 2:10 PM COMPARISON: None. CLINICAL INDICATION: Female, 69 years old with history of R20.2 PARESTHESIA OF SKIN, Neck pain into r t shoulder TECHNIQUE: Multiplanar, multisequence images of the cervical spine were acquired without contrast. Severe degene rative change of the atlantoaxial joint with a small posterior pannus. Mild multilevel hypertrophic a nterior spurring and mild degenerative disc disease extending from levels C4-5, C5-6 and C6-C7. C2-C3: No evidence for degenerative disc disease. No disc bulge/herniation or protrusion. No Canal stenosis. Foramina are patent bilaterally. C3-C4: No evidence for degenerative disc disease. No disc bulge/herniation or protrusion. No Canal stenosis. Foramina are patent bilaterally. C4-C5: No evidence for degenerative disc disease. No disc bulge/herniation or protrusion. No Canal stenosis. Foramina are patent bilaterally. C5-C6: Mild degenerative disc disease with broad-based central and right paracentral disc herniation. There is anterior compression of the spinal cord. Uncovertebral joint hypertrophy results in mild bi lateral foraminal encroachment there is severe canal stenosis. C6-C7: Mild degenerative disc disease with small broad-based focal central disc herniation abutting t he anterior margin the spinal cord. No displacement. Mild uncovertebral joint hypertrophy greater to the left with mild right and [id number]-[id number] left foraminal encroachment. Small amount of disc signa l extends posterior to the C7 vertebral body may represent a area of disc extrusion. C7-T1: No evidence for degenerative disc disease. No disc bulge/herniation or protrusion. No Canal stenosis. Foramina are patent bilaterally. Cervical segments are intact. There is normal alignment. Cannot no definite abnormal signal within t he visualized spinal cord. Faint area of signal involving the anterior margin of the spinal cord at C 5-C6 not entirely excluded. Correlate for compressive myelitis. Craniovertebral junction relationship s are within normal limits. IMPRESSION: 1. Large central and right paracentral disc herniation C5-C6 with anterior compression of the spinal cord. Severe canal stenosis. 2. Broad-based central disc herniation C6-C7 abuts the anterior margin of the spinal cord but no evid ence of displacement. Small amount of disc material extends posterior to the upper margin of the C7 v ertebral body likely representing component of disc extrusion. A Yellow level critical message alert has been initiated for Jose Luis Vick MD via the [employer] Critical Results System on 12/31/2024 2:18 PM. This message alert has been sent to Jose Luis Vick MD via the preferences provided by the clinician for the receipt of Radiology Critical Findings. Message ID [id number]. [facility], , 12/31/2024 2:20 PM
== END | disposition home or self-care (01) ==
LOC: RADUSWWP 12:03
PROVIDERS: ATTEND Family Medicine
DX: M48.02 Spinal stenosis, cervical region (principal); M50.223 Other cervical disc displacement at C6-C7 level; I65.23 Occlusion and stenosis of bilateral carotid arteries; G25.81 Restless legs syndrome; R20.2 Paresthesia of skin
CPT/HCPCS: 72141; 93880; 93970

== ENCOUNTER → 2025-01-18 | Outpatient (CLI) | payer MEDICARE ==
--- NOTE | 2025-01-18 18:49 | MR ---
EXAMINATION TYPE: MR lumbar spine wo con DATE OF EXAM: 01/18/2025 11:05 AM COMPARISON: None. CLINICAL INDICATION: Female, 69 years old with history of M54.16 RADICULOPATHY LUMBAR REGION, Low leona k pain that radiates down both legs TECHNIQUE: Multiplanar, multisequence images of the lumbar spine were acquired. IV Contrast: mL (None, if empty) FINDINGS: Cord ends at the L1-L2 level. L5-S1: Facet hypertrophy is present. No significant disc bulge evident. No spinal canal stenosis or n eural foraminal stenosis. L4-L5: There is a grade 1 spondylolisthesis with L4 anterior on L5. Facet hypertrophy has posterior l ateral thecal sac compression. Disc uncovering has moderate anterior thecal sac compression. Some spi nal canal narrowing is present. Neural foramen are patent. L3-L4: There is a large left paracentral disc herniation extending into the left lateral direction. T his is contributing to the moderate left foraminal narrowing. No nerve root contact is evident. Corre late with radicular symptoms. In the axial plane there may be displacement of the left L3 nerve root outside the foramen. Additionally Broad-based disc bulge is present. This has mild anterior thecal s ac contact. No AP spinal canal stenosis present. Moderate left and mild right foraminal narrowing is present L2-L3: No focal disc herniation or significant disc bulge. No spinal canal stenosis. Neural foramen are patent. Mild facet hypertrophy is present L1-L2: No focal disc herniation or significant disc bulge. No spinal canal stenosis. Neural foramen are patent. T12-L1: No focal disc herniation or significant disc bulge. No spinal canal stenosis. Neural forame n are patent. IMPRESSION: 1. Grade 1 spondylolisthesis of L4 anterior to L5. Mild spinal canal narrowing is present. 2. Moderate left foraminal narrowing L3-4. Milder foraminal narrowing as discussed above. 3. Large left paracentral left lateral disc herniation L3-4 contributing to the foraminal narrowing [facility], , 01/18/2025 6:46 PM
== END | disposition home or self-care (01) ==
LOC: RADMRIMAIN 10:19
PROVIDERS: ATTEND Family Medicine
DX: M43.16 Spondylolisthesis, lumbar region (principal); M48.061 Spinal stenosis, lumbar region without neurogenic claudication; M99.73 Connective tissue and disc stenosis of intervertebral foramina of lumbar region; M51.16 Intervertebral disc disorders with radiculopathy, lumbar region
CPT/HCPCS: 72148

== ENCOUNTER → 2025-01-30 | Outpatient (CLI) | payer MEDICARE ==
--- NOTE | 2025-01-30 14:41 | MM ---
Reason for Exam: Screening (asymptomatic). Last mammogram was performed 1 year(s) and 10 month(s) ago. Patient History: Menarche at age 13. First Full-Term at age 20. Hysterectomy at age 46. Other cancer, age 69. 2000, Bilateral Implants. Risk Values: Carmel 5 year model risk: 1.2%. NCI Lifetime model risk: 4.0%. Prior Study Comparison: 10/03/2017 Bilateral Screening Mammogram, [facility]. 04/04/2019 Bilateral Diagnostic Mammogram, [facility]. 03/14/2023 Bilateral MG 3D screen mammo imp/cad., [facility]. Tissue Density: The breasts are heterogeneously dense, which may obscure small masses. Findings: Analyzed By CAD. There is no suspicious group of microcalcifications or new suspicious mass in either breast. Overall Assessment: Benign, BI-RAD 2 Management: Screening Mammogram of both breasts in 1 year. . Patient should continue monthly self-breast exams. A clinical breast exam by your physician is recommended on an annual basis. This exam should not preclude additional follow-up of suspicious palpable abnormalities. Note on Carmel scores and lifetime risk: 1. A Carmel score greater than 3% is considered moderate risk. If this is the case, consider specialist referral to assess eligibility for a risk reducing agent. 2. If overall lifetime risk for the development of breast cancer is 20% or higher, the patient may qualify for future screening with alternating mammogram and breast MRI. [facility], , 01/30/2025 2:37 PM. Electronically signed and approved by: Eliel Roberts M.D. Radiologis
== END | disposition home or self-care (01) ==
LOC: RADMAMWWP 14:01
PROVIDERS: ATTEND Family Medicine
DX: Z12.31 Encounter for screening mammogram for malignant neoplasm of breast (principal); R92.333 Mammographic heterogeneous density, bilateral breasts; Z98.82 Breast implant status
CPT/HCPCS: 77063; 77067